=== PATIENT | female | born 1955 | race Caucasian/White ===

== ENCOUNTER 2017-07-31 18:14 | Emergency (ER) | payer OTHER, MEDICAID ==
[2017-07-31 20:04] LABS: URINE BLOOD (Dip) POC Negative (NEGATIVE); URINE GLUCOSE (Dip) POC Negative (NEGATIVE); URINE KETONES (Dip) POC Negative (NEGATIVE); URINE LEUKOCYTE EST (Dip) POC Negative (NEGATIVE); URINE NITRITE (Dip) POC Negative (NEGATIVE); URINE TOTAL PROTEIN POC 1+ (NEGATIVE)
[2017-07-31] MEDS: BACLOFEN 10 MG TAB PO (20:06)
[2017-07-31] MEDS: HYDROCODONE/APAP (7.5/325) TAB PO (20:06)
[2017-07-31 20:12] LABS: URINE BLOOD (Dip) POC Negative (NEGATIVE); URINE GLUCOSE (Dip) POC Negative (NEGATIVE); URINE KETONES (Dip) POC Negative (NEGATIVE); URINE LEUKOCYTE EST (Dip) POC Negative (NEGATIVE); URINE NITRITE (Dip) POC Negative (NEGATIVE); URINE TOTAL PROTEIN POC Trace (NEGATIVE)
[2017-07-31] MEDS: KETOROLAC 30 MG INJ IM (21:35)
[2017-07-31] MEDS: morphine 2 MG INJ IM (23:16)
== END 2017-08-01 00:41 | disposition home or self-care (01) ==
LOC: FTE 18:14
DX: M54.5 Low back pain (principal); F17.210 Nicotine dependence, cigarettes, uncomplicated
CPT/HCPCS: 71046; 72072; 81003; 96372; 99284-25